=== PATIENT | female | born 1965 | race Caucasian/White ===

== ENCOUNTER 2021-09-10 16:28 | Emergency (ER) | payer OTHER, MEDICARE, MEDICAID ==
[2021-09-10 19:06] LABS: #Basophils 0.1 10x3/uL (0.0-0.2); #Eosinphils 0.2 10x3/uL (0.0-0.5); #Monocytes 0.5 10x3/uL (0.0-1.1); #Neutrophils 9.9 10x3/uL (1.5-8.4); %Basophils 0.7 % (0.0-2.0); %Eosinophils 1.6 % (0.0-6.0); %Lymphocytes 17.2 % (18.0-47.0); %Monocytes 3.8 % (0.0-10.0); %Neutrophils 76.4 % (40.0-75.0); Hemoglobin 13.1 g/dL (12.0-15.5); Mean Corpuscular HGB CONC 30.5 g/dL (32.0-36.0); Mean Corpuscular Hemoglobin 25.1 pg (27.0-33.0); Mean Corpuscular Volume 82.3 fl (81.6-98.3); Mean Platelet Volume 9.9 fl (7.4-10.4); Platelet Count 214 10x3/uL (150-450); RBC Distribution Width 15.9 % (11.5-14.5); Red Blood Cell (RBC) Count 5.21 10x6/uL (3.90-5.03)
[2021-09-10 19:19] LABS: ALT (SGPT) 12 U/L (8-55); AST (SGOT) 17 U/L (5-34); Alkaline Phosphatase 100 U/L (40-110); Anion Gap 17 mmol/L (10-20); BUN (Urea Nitrogen) 12 mg/dL (9.8-20.1); Bilirubin, Total 0.4 mg/dL (0.2-1.2); Calc. Creatinine Clearance 0 mL/min (70-130); Calcium 9.6 mg/dL (7.8-10.44); Carbon Dioxide 22 mmol/L (22-29); Chloride 100 mmol/L (98-107); Glucose 156 mg/dL (70-105); Sodium 135 mmol/L (136-145)
[2021-09-10 19:41] LABS: Bilirubin Neg (Negative); Blood, Urine Negative (Negative); Clarity Clear (Clear); Glucose, Urine (Dipstick) Normal (Negative); Ketone, Urine Negative (Negative); Leukocyte Negative (Negative); Nitrite Negative (Negative); Protein, Urine (Dipstick) 15 mg/dl (Neg-Trace); Urobilinogen Normal mg/dL (Less than 2)
== END 2021-09-10 20:46 | disposition home or self-care (01) ==
LOC: CSHERS 16:28
DX: R35.0 Frequency of micturition (principal); R10.30 Lower abdominal pain, unspecified; E11.9 Type 2 diabetes mellitus without complications
CPT/HCPCS: 36415; 36416; 51701; 80053; 81003; 85025

== ENCOUNTER 2023-03-30 20:35 | Emergency (ER) | payer OTHER, MEDICARE, MEDICAID ==
[2023-03-30 21:51] LABS: #Basophils 0.1 10x3/uL (0.0-0.2); #Eosinphils 0.2 10x3/uL (0.0-0.5); #Monocytes 0.5 10x3/uL (0.0-1.1); #Neutrophils 6.6 10x3/uL (1.5-8.4); %Eosinophils 2.4 % (0.0-6.0); %Lymphocytes 26.8 % (18.0-47.0); %Monocytes 4.4 % (0.0-10.0); %Neutrophils 65.1 % (40.0-75.0); Hematocrit 40.5 % (34.9-44.5); Hemoglobin 13.3 g/dL (12.0-15.5); Mean Corpuscular HGB CONC 32.8 g/dL (32.0-36.0); Mean Corpuscular Hemoglobin 27.6 pg (27.0-33.0); Mean Platelet Volume 9.7 fl (7.4-10.4); Platelet Count 156 10x3/uL (150-450); RBC Distribution Width 13.2 % (11.5-14.5); Red Blood Cell (RBC) Count 4.82 10x6/uL (3.90-5.03); White Blood Cell (WBC) Count 10.2 10x3/uL (3.5-10.5)
[2023-03-30 22:13] LABS: Bilirubin Neg (Negative); Blood, Urine 25 (Negative); Clarity Slightly Cloudy (Clear); Glucose, Urine (Dipstick) 250 mg/dL (Negative); Ketone, Urine Negative (Negative); Leukocyte 500 (Negative); Nitrite Negative (Negative); Protein, Urine (Dipstick) 30 mg/dl (Neg-Trace); Specific Gravity, Urine 1.015 (1.005-1.030); Urobilinogen Normal mg/dL (Less than 2)
[2023-03-30 22:14] LABS: SARS-CoV-2 NAA Rapid Test Not Detected (NotDetected)
[2023-03-30 22:27] LABS: ALT (SGPT) 13 U/L (8-55); AST (SGOT) 15 U/L (5-34); Albumin 3.8 g/dL (3.5-5.0); Alkaline Phosphatase 85 U/L (40-110); Anion Gap 15 mmol/L (10-20); BUN (Urea Nitrogen) 5 mg/dL (9.8-20.1); Bilirubin, Total 0.5 mg/dL (0.2-1.2); Calc. Creatinine Clearance 0 mL/min (70-130); Carbon Dioxide 23 mmol/L (22-29); Chloride 99 mmol/L (98-107); Estimated GFR 82; Globulin 2.8 g/dL (2.4-3.5); Glucose 368 mg/dL (70-105); Potassium 3.6 mmol/L (3.5-5.1); Protein, Total 6.6 g/dL (6.0-8.3); Sodium 133 mmol/L (136-145)
[2023-03-30 22:32] LABS: Bacteria/HPF 1+ HPF (None Seen); CAUTI Indications for Culture Pelvic or flank pain; RBC/HPF 0-3 HPF (0-3); WBC/HPF 21-50 HPF (0-3)
[2023-03-30 22:34] LABS: Urine Culture Reflex Yes Yes
[2023-03-30] MEDS ORDERED: Ciprofloxacin 500 MG TAB ONE (23:13)
== END 2023-03-30 23:51 | disposition home or self-care (01) ==
LOC: CSHERS 20:35
DX: N39.0 Urinary tract infection, site not specified (principal); E11.9 Type 2 diabetes mellitus without complications; Z20.822 Contact with and (suspected) exposure to COVID-19
CPT/HCPCS: 36415; 74176; 80053; 81001; 85025; 87086; J0744

== ENCOUNTER 2023-05-03 23:07 | Inpatient (IN) | payer OTHER, MEDICARE, MEDICAID ==
[2023-05-03] MEDS ORDERED: Digoxin 0.5 MG/2 ML AMP ONE (23:59)
[2023-05-04] MEDS ORDERED: dilTIAZem 25 MG/5 ML VIAL ONE
[2023-05-04] MEDS ORDERED: Aspirin Chewable 81 MG TAB ONE
[2023-05-04 00:08] LABS: #Basophils 0.1 10x3/uL (0.0-0.2); #Eosinphils 0.3 10x3/uL (0.0-0.5); #Monocytes 0.5 10x3/uL (0.0-1.1); #Neutrophils 8.6 10x3/uL (1.5-8.4); %Basophils 0.7 % (0.0-2.0); %Eosinophils 2.1 % (0.0-6.0); %Lymphocytes 22.4 % (18.0-47.0); %Monocytes 3.9 % (0.0-10.0); %Neutrophils 70.6 % (40.0-75.0); Hematocrit 43.5 % (34.9-44.5); Hemoglobin 14.3 g/dL (12.0-15.5); Mean Corpuscular HGB CONC 32.9 g/dL (32.0-36.0); Mean Corpuscular Hemoglobin 27.9 pg (27.0-33.0); Mean Platelet Volume 10.5 fl (7.4-10.4); Platelet Count 179 10x3/uL (150-450); RBC Distribution Width 13.2 % (11.5-14.5); Red Blood Cell (RBC) Count 5.12 10x6/uL (3.90-5.03); White Blood Cell (WBC) Count 12.1 10x3/uL (3.5-10.5)
[2023-05-04 00:22] LABS: ALT (SGPT) 15 U/L (8-55); AST (SGOT) 17 U/L (5-34); Albumin 4.1 g/dL (3.5-5.0); Alkaline Phosphatase 103 U/L (40-110); Anion Gap 19 mmol/L (10-20); BUN (Urea Nitrogen) 7 mg/dL (9.8-20.1); Bilirubin, Total 0.5 mg/dL (0.2-1.2); Calc. Creatinine Clearance 0 mL/min (70-130); Calcium 9.5 mg/dL (7.8-10.44); Carbon Dioxide 22 mmol/L (22-29); Chloride 101 mmol/L (98-107); Estimated GFR 78; Globulin 2.6 g/dL (2.4-3.5); Glucose 266 mg/dL (70-105); Lipase 27 U/L (8-78); Potassium 3.8 mmol/L (3.5-5.1); Protein, Total 6.7 g/dL (6.0-8.3); Sodium 138 mmol/L (136-145)
[2023-05-04 00:28] LABS: Troponin I Less than 0.010 ng/mL (< 0.028)
[2023-05-04] MEDS ORDERED: diphenhydrAMINE 50 MG/ML VIAL ONE (00:50)
[2023-05-04] MEDS ORDERED: Famotidine/PF 20 mg/2ml Vial ONE (00:51)
[2023-05-04] MEDS ORDERED: methylPREDNISolone Sod Succ 40 MG VIAL ONE (00:51)
[2023-05-04 01:03] LABS: SARS-CoV-2 NAA Rapid Test Not Detected (NotDetected)
[2023-05-04] MEDS ORDERED: Promethazine 25 MG TAB ONE ×2 (03:27)
[2023-05-04] MEDS ORDERED: Senokot S 8.6-50 MG TAB PO PRN (03:42)
[2023-05-04] MEDS ORDERED: Ondansetron PF 4 MG/2 ML Vial IVP PRN (03:42)
[2023-05-04] MEDS ORDERED: Acetaminophen 325 MG TAB PO PRN (03:42)
[2023-05-04] MEDS ORDERED: Dextrose 5% in Water 1,000 ML IV PRN (03:42)
[2023-05-04] MEDS ORDERED: Guaifenesin DM 100-10/5 ML UDCUP PO PRN (03:42)
[2023-05-04] MEDS ORDERED: Calcium Carbonate 500 MG ChewTAB PO PRN (03:42)
[2023-05-04] MEDS ORDERED: Glucagon 1 MG/ML KIT IM PRN (03:42)
[2023-05-04] MEDS ORDERED: Dextrose 50% Abboject 50 ML SYRINGE SLOW IVP PRN (03:42)
[2023-05-04] MEDS ORDERED: Magnesium Sulfate/D5W 1 GM/100 ML BAG IVPB SCH (04:00)
[2023-05-04 04:25] LABS: Bilirubin Neg (Negative); Blood, Urine 50 (Negative); Clarity Cloudy (Clear); Glucose, Urine (Dipstick) >=1000 mg/dL (Negative); Ketone, Urine 5 mg/dL (Negative); Leukocyte 500 (Negative); Nitrite Negative (Negative); Protein, Urine (Dipstick) 30 mg/dl (Neg-Trace); Urobilinogen Normal mg/dL (Less than 2)
[2023-05-04] MEDS ORDERED: Potassium Chloride 20 MEQ TAB PO SCH (04:30)
[2023-05-04] MEDS ORDERED: dilTIAZem 30 MG TAB PO SCH (04:30)
[2023-05-04] MEDS ORDERED: Magnesium Sulfate/D5W 1 GM in Premix 1 BAG IVPB SCH (04:30)
[2023-05-04 04:47] LABS: Bacteria/HPF 1+ HPF (None Seen); CAUTI Indications for Culture < 2yrs of age; Mucous/LPF 1+ LPF (<2+); Renal Epithelial 0-3 HPF (None Seen); WBC/HPF 21-50 HPF (0-3)
[2023-05-04 04:48] LABS: Urine Culture Reflex Yes Yes
[2023-05-04] MEDS ORDERED: Magnesium Sulfate/D5W 1 GM/100 ML BAG ONE (04:56)
[2023-05-04 05:12] LABS: #Basophils 0.1 10x3/uL (0.0-0.2); #Neutrophils 10.5 10x3/uL (1.5-8.4); %Basophils 0.4 % (0.0-2.0); %Eosinophils 0.1 % (0.0-6.0); %Lymphocytes 5.4 % (18.0-47.0); %Monocytes 0.4 % (0.0-10.0); %Neutrophils 93.2 % (40.0-75.0); Hematocrit 41.3 % (34.9-44.5); Hemoglobin 13.5 g/dL (12.0-15.5); Mean Corpuscular HGB CONC 32.7 g/dL (32.0-36.0); Mean Corpuscular Hemoglobin 27.8 pg (27.0-33.0); Mean Platelet Volume 10.6 fl (7.4-10.4); Platelet Count 191 10x3/uL (150-450); RBC Distribution Width 13.2 % (11.5-14.5); Red Blood Cell (RBC) Count 4.86 10x6/uL (3.90-5.03); White Blood Cell (WBC) Count 11.3 10x3/uL (3.5-10.5)
[2023-05-04 05:23] LABS: Lactic Acid 3.3 mmol/L (0.5-2.2)
[2023-05-04 05:27] LABS: Magnesium 1.4 mg/dL (1.6-2.6)
[2023-05-04 05:38] LABS: Troponin I Less than 0.010 ng/mL (< 0.028)
[2023-05-04] MEDS ORDERED: dilTIAZem CD 180 MG CAP PO SCH (09:00)
[2023-05-04] MEDS ORDERED: Nitrofurantoin Monohyd/M-Cryst 100 MG CAP PO SCH (09:00)
[2023-05-04] MEDS ORDERED: Losartan 25 MG TAB PO SCH (09:00)
[2023-05-04 09:25] LABS: Legionella Urinary Ag Negative (Negative); Strep pneumo Urine Ag POSITIVE (NEGATIVE)
[2023-05-04] MEDS ORDERED: Iopamidol 370 76% 100 ML VIAL ONE (09:50)
[2023-05-04] MEDS ORDERED: Apixaban 5 MG TAB ONE (10:08)
[2023-05-04] MEDS ORDERED: Potassium Chloride 20 MEQ TAB ONE (10:09)
[2023-05-04] MEDS: Famotidine 20 MG TAB PO SCH ×2 (11:09→21:19)
[2023-05-04] MEDS: Apixaban 5 MG TAB PO SCH ×2 (11:09→21:19)
[2023-05-04] MEDS: Carbidopa/Levodopa 25-100 mg Tablet PO SCH ×3 (11:09→21:19)
[2023-05-04] MEDS: HumaLOG 300 UNITS/3 ML VIAL SC PRN (13:36)
[2023-05-04] MEDS: cefTRIAXone\\ROCEPHIN 1 GM in Sodium Chloride 0.9% 100 ML IVPB SCH (17:04)
[2023-05-04] MEDS: metFORMIN 500 MG TAB PO SCH (17:05)
[2023-05-04 17:17] LABS: Lactic Acid 2.7 mmol/L (0.5-2.2)
[2023-05-04] MEDS ORDERED: DULoxetine 60 MG CAP PO SCH (21:00)
[2023-05-04] MEDS: DULoxetine 30 MG CAP PO SCH (21:18)
[2023-05-04] MEDS: Flecainide 50 MG TAB PO SCH (21:19)
[2023-05-04] MEDS: Mirtazapine 15 MG TAB PO SCH (21:19)
[2023-05-04] MEDS: Lithium Carbonate 150 MG CAP PO SCH (21:20)
[2023-05-05 05:32] LABS: #Basophils 0.1 10x3/uL (0.0-0.2); #Eosinphils 0.2 10x3/uL (0.0-0.5); #Monocytes 0.5 10x3/uL (0.0-1.1); #Neutrophils 7.9 10x3/uL (1.5-8.4); %Basophils 0.6 % (0.0-2.0); %Eosinophils 1.5 % (0.0-6.0); %Lymphocytes 24.5 % (18.0-47.0); %Monocytes 4.1 % (0.0-10.0); %Neutrophils 68.8 % (40.0-75.0); Hematocrit 39.5 % (34.9-44.5); Hemoglobin 12.6 g/dL (12.0-15.5); Mean Corpuscular HGB CONC 31.9 g/dL (32.0-36.0); Mean Corpuscular Hemoglobin 27.3 pg (27.0-33.0); Mean Corpuscular Volume 85.7 fl (81.6-98.3); Mean Platelet Volume 10.5 fl (7.4-10.4); Platelet Count 179 10x3/uL (150-450); RBC Distribution Width 13.5 % (11.5-14.5); Red Blood Cell (RBC) Count 4.61 10x6/uL (3.90-5.03); White Blood Cell (WBC) Count 11.4 10x3/uL (3.5-10.5)
[2023-05-05 05:34] LABS: Anion Gap 14 mmol/L (10-20); BUN (Urea Nitrogen) 9 mg/dL (9.8-20.1); Calc. Creatinine Clearance 141 mL/min (70-130); Calcium 8.9 mg/dL (7.8-10.44); Carbon Dioxide 23 mmol/L (22-29); Chloride 103 mmol/L (98-107); Estimated GFR 90; Glucose 258 mg/dL (70-105); Sodium 136 mmol/L (136-145)
[2023-05-05] MEDS: Levothyroxine Sodium 100 MCG TAB PO SCH (06:44)
[2023-05-05] MEDS: Levothyroxine Sodium 75 MCG TAB PO SCH (06:44)
[2023-05-05] MEDS: Famotidine 20 MG TAB PO SCH ×2 (09:49→20:23)
[2023-05-05] MEDS: Flecainide 50 MG TAB PO SCH ×2 (09:49→20:28)
[2023-05-05] MEDS: metFORMIN 500 MG TAB PO SCH (09:50)
[2023-05-05] MEDS: DULoxetine 30 MG CAP PO SCH ×2 (09:50→20:24)
[2023-05-05] MEDS: Carbidopa/Levodopa 25-100 mg Tablet PO SCH (09:51)
[2023-05-05] MEDS: Apixaban 5 MG TAB PO SCH ×2 (09:51→20:22)
[2023-05-05] MEDS: Lithium Carbonate 150 MG CAP PO SCH ×2 (09:51→20:24)
[2023-05-05 09:54] LABS: Magnesium 1.8 mg/dL (1.6-2.6)
[2023-05-05] MEDS ORDERED: Sodium Chloride 0.9% 1,000 ML IV SCH (10:15)
[2023-05-05 13:03] LABS: Lactic Acid 3.6 mmol/L (0.5-2.2)
[2023-05-05] MEDS: cefTRIAXone\\ROCEPHIN 1 GM in Sodium Chloride 0.9% 100 ML IVPB SCH (16:38)
[2023-05-05] MEDS: HumaLOG 300 UNITS/3 ML VIAL SC PRN ×2 (17:26→20:27)
[2023-05-05] MEDS: Mirtazapine 15 MG TAB PO SCH (20:23)
[2023-05-06 03:55] LABS: Lactic Acid 1.9 mmol/L (0.5-2.2)
[2023-05-06] MEDS: Levothyroxine Sodium 75 MCG TAB PO SCH (06:04)
[2023-05-06] MEDS: Levothyroxine Sodium 100 MCG TAB PO SCH (06:04)
[2023-05-06] MEDS: HumaLOG 300 UNITS/3 ML VIAL SC PRN ×2 (06:06→11:52)
[2023-05-06] MEDS: DULoxetine 30 MG CAP PO SCH (07:57)
[2023-05-06] MEDS: Famotidine 20 MG TAB PO SCH (07:57)
[2023-05-06] MEDS: Flecainide 50 MG TAB PO SCH (07:57)
[2023-05-06] MEDS: Apixaban 5 MG TAB PO SCH (07:57)
[2023-05-06] MEDS: Lithium Carbonate 150 MG CAP PO SCH (07:58)
[2023-05-06 08:13] LABS: #Basophils 0.1 10x3/uL (0.0-0.2); #Eosinphils 0.2 10x3/uL (0.0-0.5); #Monocytes 0.4 10x3/uL (0.0-1.1); #Neutrophils 6.8 10x3/uL (1.5-8.4); %Basophils 0.8 % (0.0-2.0); %Eosinophils 2.5 % (0.0-6.0); %Lymphocytes 20.8 % (18.0-47.0); %Monocytes 4.3 % (0.0-10.0); %Neutrophils 71.2 % (40.0-75.0); Hematocrit 39.9 % (34.9-44.5); Hemoglobin 12.7 g/dL (12.0-15.5); Mean Corpuscular HGB CONC 31.8 g/dL (32.0-36.0); Mean Corpuscular Hemoglobin 27.3 pg (27.0-33.0); Mean Corpuscular Volume 85.8 fl (81.6-98.3); Mean Platelet Volume 9.9 fl (7.4-10.4); Platelet Count 170 10x3/uL (150-450); RBC Distribution Width 13.3 % (11.5-14.5); Red Blood Cell (RBC) Count 4.65 10x6/uL (3.90-5.03); White Blood Cell (WBC) Count 9.6 10x3/uL (3.5-10.5)
[2023-05-06] MEDS ORDERED: LevoFLOXacin 750 MG TAB PO SCH (10:00)
[2023-05-06 17:42] VITALS: BP 138/64; TEMP 97.4
[2023-05-07] MEDS ORDERED: LevoFLOXacin 750 MG TAB PO SCH (06:00)
== END 2023-05-06 18:52 | disposition home or self-care (01) | DRG 690 ==
LOC: CSHERS 23:07 → INTOOBSV 05-04 03:29 → CSHERHOLD 05-04 03:29 → CSHTELE 05-04 15:40 → OBSVTOIN 05-05 10:32
PROVIDERS: ADMIT Student in an Organized Health Care Education/Training Program; ATTEND Nurse Practitioner Acute Care
DX: N39.0 Urinary tract infection, site not specified (principal); E87.20 Acidosis, unspecified; Z68.41 Body mass index [BMI] 40.0-44.9, adult; I48.0 Paroxysmal atrial fibrillation; R91.8 Other nonspecific abnormal finding of lung field; I10 Essential (primary) hypertension; E11.9 Type 2 diabetes mellitus without complications; E66.01 Morbid (severe) obesity due to excess calories; F31.9 Bipolar disorder, unspecified; F20.9 Schizophrenia, unspecified; G20.A1 Parkinson's disease without dyskinesia, without mention of fluctuations; Z20.822 Contact with and (suspected) exposure to COVID-19; Z86.73 Personal history of transient ischemic attack (TIA), and cerebral infarction without residual deficits; Z90.49 Acquired absence of other specified parts of digestive tract; Z90.710 Acquired absence of both cervix and uterus; Z98.891 History of uterine scar from previous surgery; Z80.0 Family history of malignant neoplasm of digestive organs
CPT/HCPCS: 36415; 36416; 71045; 71275; 80048; 80053; 81001; 83605; 83690; 83735; 83880; 84443; 84484; 85025; 85379; 87040; 87086; 87449; 87899; 93005; 93306; J0696; J1160; J1200; J1815; J2920; J3475; J3490; J7050; Q0169; Q9967; S0028